=== PATIENT | male | born 1960 | race African-American/Black ===

== ENCOUNTER 2023-08-03 12:06 | Inpatient (IN) | payer BC ==
[~2023-08-03] VITALS: Ht 166.4 cm; Wt 78.0 kg
[2023-08-03] MEDS: SODIUM CHLORIDE 0.9% 1,000 ML IV ONE (12:30)
[2023-08-03 14:50] LABS: BASOPHILS % 0.2 % (0.0-2.0); EOSINOPHILS % 1.6 % (0.0-5.0); HEMATOCRIT. 43.2 % (42.0-52.0); HEMOGLOBIN. 13.8 g/dL (14.0-18.0); LYMPHOCYTES % 11.2 % (20.0-50.0); MEAN CORPUSCULAR HEMOGLOBIN 28.2 pg (28.0-32.0); MEAN CORPUSCULAR VOLUME 88.1 fL (80.0-94.0); MEAN PLATELET VOLUME 7.4 fl (7.4-10.4); MONOCYTES % 5.9 % (2.0-8.0); NEUTROPHILS % 81.1 % (40.0-76.0); PLATELET 287 x1000/uL (130-400); RED CELL DISTRIBUTION WIDTH 14.8 % (11.6-14.6); WHITE BLOOD COUNT 8.6 x1000/uL (4.5-11.0)
[2023-08-03 15:01] LABS: PROTHROMBIN TIME 11.1 sec (9.6-11.0)
[2023-08-03 15:11] LABS: ALANINE AMINOTRANSFERASE 26 IU/L (10-49); ALBUMIN 4.7 g/dL (3.2-4.8); ASPARTATE AMINOTRANSFERASE 25 IU/L (<34); BILIRUBIN TOTAL 0.6 mg/dL (0.1-1.0); CALCIUM 9.3 mg/dL (8.7-10.4); CARBON DIOXIDE 27 mEq/L (21-32); CHLORIDE 104 mEq/L (98-107); CREATININE 0.9 mg/dL (0.6-1.3); ETHANOL BLOOD 11 mg/dL (<10); GLUCOSE 86 mg/dL (70-105); POTASSIUM 4.4 mEq/L (3.5-5.1); PROTEIN TOTAL 8.4 g/dL (6.0-8.3); SODIUM 140 mEq/L (136-145); UREA NITROGEN BLOOD 13 mg/dL (9-23)
[2023-08-03 15:26] LABS: CLARITY URINE CLEAR (CLEAR); COLOR URINE YELLOW (YELLOW); GLUCOSE URINE NEGATIVE (NEGATIVE); KETONES URINE NEGATIVE (NEGATIVE); LEUKOCYTE ESTERASE URINE NEGATIVE (NEGATIVE); NITRITE URINE NEGATIVE (NEGATIVE); OCCULT BLOOD URINE NEGATIVE (NEGATIVE); PH URINE 7.5 (4.5-8.0); PROTEIN URINE NEGATIVE (NEGATIVE); SPECIFIC GRAVITY URINE 1.005 (1.005-1.030); UROBILINOGEN URINE 0.2 E.U./dL (0.2-1.0)
[2023-08-03 15:30] LABS: TROPONIN I HIGH SENSITIVITY < 4 ng/L (3.0-53)
[2023-08-03 15:51] LABS: *AMPHETAMINES SCREEN URINE NEGATIVE (NEGATIVE); *BARBITURATES SCREEN URINE NEGATIVE (NEGATIVE); *BENZODIAZEPINES SCREEN URINE NEGATIVE (NEGATIVE); *COCAINE SCREEN URINE PRESUMPTIVE POSITIVE (NEGATIVE); CANNABINOID URINE SCREEN PRESUMPTIVE POSITIVE (NEGATIVE); ECSTASY MDMA SCREEN URINE NEGATIVE (NEGATIVE); METHADONE URINE SCREEN Neg (NEGATIVE); OPIATES URINE SCREEN NEGATIVE (NEGATIVE); PHENCYCLIDINE URINE SCREEN NEGATIVE (NEGATIVE)
[2023-08-03 21:23] LABS: TROPONIN I HIGH SENSITIVITY < 4 ng/L (3.0-53)
[2023-08-04] MEDS ORDERED: MAGNESIUM/ALUMINUM HYDROXIDE/SIMETHICONE 30ML UDC PO PRN (14:15)
[2023-08-04] MEDS ORDERED: GUAIFENESIN 200MG/10ML SUGAR FREE UDC PO PRN (14:15)
[2023-08-04] MEDS ORDERED: ACETAMINOPHEN 650MG/20.3ML UDC GT PRN (14:15)
[2023-08-04] MEDS ORDERED: DOCUSATE SODIUM 100MG CAPSULE PO PRN (14:15)
[2023-08-04] MEDS ORDERED: ONDANSETRON HCL 4MG/2ML INJ IV PRN (14:15)
[2023-08-04] MEDS ORDERED: IPRATROPIUM/ALBUTEROL 0.5-3(2.5)MG/3ML NEB NEB PRN (14:15)
[2023-08-04] MEDS ORDERED: HYDROCODONE/ACETAMINOPHEN 5/325MG TABLET PO PRN (14:15)
[2023-08-04] MEDS ORDERED: DIPHENHYDRAMINE 50MG/ML VIAL IV PRN (14:15)
[2023-08-04] MEDS ORDERED: LORAZEPAM 0.5MG TABLET PO PRN (14:15)
[2023-08-04] MEDS ORDERED: NA PHOS,M-B/NA PHOS,DI-BA ENEMA 118ML PR PRN (14:15)
[2023-08-04 17:25] VITALS: BP 141/86; PULSE 79
[2023-08-04 17:50] VITALS: BP 131/74; PULSE 66
[2023-08-04 18:15] VITALS: BP 143/76; PULSE 72
[2023-08-04] MEDS: MVI, ADULT NO.1 10 ML, THIAMINE HCL 100 MG, FOLIC ACID 1 MG in DEXT 5%/0.45% NACL 1000M... IV ONE (18:21)
[2023-08-04 18:26] VITALS: BP 157/107; PULSE 66; RESP 18; TEMP 97.3
[2023-08-04] MEDS ORDERED: SIME125C MT (19:21)
[2023-08-04] MEDS ORDERED: LISI40TA13 MT (19:21)
[2023-08-04] MEDS ORDERED: FAMO20TA8 MT (19:21)
[2023-08-04 20:58] VITALS: BP 160/87; PULSE 66; TEMP 98.8
[2023-08-04] MEDS: CLONIDINE 0.1MG TABLET PO PRN (21:47)
[2023-08-05] VITALS (7 sets, daily range): BP systolic 112–139; BP diastolic 53–85; PULSE 53–86; RESP 16–20; TEMP 97.1–98.5
[2023-08-05 00:29] LABS: CREATINE KINASE 108 IU/L (46-171); CREATINE KINASE MB FRACTION < 0.5 ng/mL (0.5-3.6)
[2023-08-05 00:40] LABS: TROPONIN I HIGH SENSITIVITY < 4 ng/L (3.0-53)
[2023-08-05 05:52] LABS: BASOPHILS % 0.4 % (0.0-2.0); HEMATOCRIT. 35.5 % (42.0-52.0); HEMOGLOBIN. 11.7 g/dL (14.0-18.0); LYMPHOCYTES % 38.2 % (20.0-50.0); MEAN CORPUSCULAR HEMOGLOBIN 28.6 pg (28.0-32.0); MEAN CORPUSCULAR HGB CONC 33.1 g/dL (31.0-37.0); MEAN CORPUSCULAR VOLUME 86.4 fL (80.0-94.0); MEAN PLATELET VOLUME 7.6 fl (7.4-10.4); MONOCYTES % 9.1 % (2.0-8.0); NEUTROPHILS % 39.3 % (40.0-76.0); PLATELET 283 x1000/uL (130-400); RED CELL DISTRIBUTION WIDTH 14.3 % (11.6-14.6); WHITE BLOOD COUNT 4.4 x1000/uL (4.5-11.0)
[2023-08-05 06:04] LABS: ALANINE AMINOTRANSFERASE 15 IU/L (10-49); ALBUMIN 3.8 g/dL (3.2-4.8); ASPARTATE AMINOTRANSFERASE 15 IU/L (<34); BILIRUBIN TOTAL 0.7 mg/dL (0.1-1.0); CALCIUM 8.6 mg/dL (8.7-10.4); CARBON DIOXIDE 25 mEq/L (21-32); CHLORIDE 105 mEq/L (98-107); CHOLESTEROL 162 mg/dL (<200); CREATINE KINASE 107 IU/L (46-171); CREATINE KINASE MB FRACTION < 0.5 ng/mL (0.5-3.6); CREATININE 0.9 mg/dL (0.6-1.3); GLUCOSE 99 mg/dL (70-105); HDL CHOLESTEROL 50 mg/dL (>55); LDL CHOLESTEROL 92 mg/dL (5-100); POTASSIUM 3.6 mEq/L (3.5-5.1); PROTEIN TOTAL 6.9 g/dL (6.0-8.3); SODIUM 136 mEq/L (136-145); THYROID STIMULATING HORMONE 1.14 uIU/mL (0.55-4.78); TRIGLYCERIDE 130 mg/dL (0-150); UREA NITROGEN BLOOD 11 mg/dL (9-23)
[2023-08-05 06:47] LABS: TROPONIN I HIGH SENSITIVITY < 4 ng/L (3.0-53)
[2023-08-05] MEDS ORDERED: NALOXONE HCL 0.4MG/ML VIAL IV PRN (23:15)
[2023-08-06] VITALS: BP 111/63; PULSE 71; RESP 18; TEMP 97
[2023-08-06 04:00] VITALS: BP 132/67; PULSE 64; RESP 18; TEMP 97.3
[2023-08-06 08:00] VITALS: BP 128/63; PULSE 64; RESP 19
[2023-08-06 12:00] VITALS: BP 145/92; PULSE 65; RESP 19
[2023-08-06 16:00] VITALS: BP 137/78; PULSE 75; RESP 19; TEMP 99.7
[2023-08-06 20:00] VITALS: BP_SYST 142; BP_SYST 153; BP_DIAS 82; BP_DIAS 86; PULSE 75; RESP 18; TEMP 98.2
[2023-08-07] VITALS: BP_SYST 138; BP_SYST 148; BP_SYST 154; BP_DIAS 78; BP_DIAS 84; PULSE 72; RESP 18; TEMP 98.6
[2023-08-07 04:00] VITALS: BP_SYST 138; BP_SYST 152; BP_DIAS 72; BP_DIAS 78; PULSE 74; RESP 19; TEMP 98.8
[2023-08-07 07:35] LABS: BASOPHILS % 0.5 % (0.0-2.0); EOSINOPHILS % 11.2 % (0.0-5.0); HEMATOCRIT. 38.6 % (42.0-52.0); HEMOGLOBIN. 12.5 g/dL (14.0-18.0); LYMPHOCYTES % 36.4 % (20.0-50.0); MEAN CORPUSCULAR HEMOGLOBIN 28.5 pg (28.0-32.0); MEAN CORPUSCULAR HGB CONC 32.4 g/dL (31.0-37.0); MEAN CORPUSCULAR VOLUME 88.1 fL (80.0-94.0); MEAN PLATELET VOLUME 7.6 fl (7.4-10.4); MONOCYTES % 10.1 % (2.0-8.0); NEUTROPHILS % 41.8 % (40.0-76.0); PLATELET 315 x1000/uL (130-400); RED BLOOD CELL COUNT 4.37 mill/uL (4.7-6.1); RED CELL DISTRIBUTION WIDTH 14.2 % (11.6-14.6); WHITE BLOOD COUNT 4.7 x1000/uL (4.5-11.0)
[2023-08-07 07:43] LABS: CALCIUM 8.8 mg/dL (8.7-10.4); CARBON DIOXIDE 28 mEq/L (21-32); CHLORIDE 104 mEq/L (98-107); CREATININE 0.9 mg/dL (0.6-1.3); GLUCOSE 97 mg/dL (70-105); SODIUM 138 mEq/L (136-145); UREA NITROGEN BLOOD 9 mg/dL (9-23)
[2023-08-07 08:00] VITALS: BP 168/94; PULSE 67; RESP 18; TEMP 96
[2023-08-07 12:00] VITALS: BP 138/82; PULSE 72; RESP 18; TEMP 98.1
[2023-08-07 14:25] VITALS: BP 127/48; PULSE 109; TEMP 97.5; O2SAT 99
== END 2023-08-07 14:30 | disposition home or self-care (01) | DRG 312 ==
LOC: ER 12:06 → 5WST 18:32 → 8WST 08-04 14:41
PROVIDERS: ADMIT Internal Medicine; ATTEND Internal Medicine
DX: I95.1 Orthostatic hypotension (principal); F10.90 Alcohol use, unspecified, uncomplicated; E86.0 Dehydration; I10 Essential (primary) hypertension; R26.2 Difficulty in walking, not elsewhere classified; Z86.73 Personal history of transient ischemic attack (TIA), and cerebral infarction without residual deficits
CPT/HCPCS: 36415; 70551; 71045; 80048; 80053; 80061; 80305; 80320; 81003; 82550; 82553; 83036; 84443; 84484; 85025; 92523; 93005; 93306; 93880; 93970; 97116; 97162; 97166; 99285; J3411; J3490; J7030; G0480